=== PATIENT | female | born 1945 | race African-American/Black ===

== ENCOUNTER 2016-05-29 18:18 | Emergency (ER) | payer MEDICARE ==
[2016-05-29] MEDS ORDERED: HYDROcod/ACET 5/325 Prepack 6 PO ONE ×2 (19:34→19:40)
[2016-05-29] MEDS ORDERED: HYDROcod/ACETAM 5/325 MG TABLET PO STA (19:34)
[2016-05-29] MEDS ORDERED: HYDROcod/ACETAM 5/325 MG TABLET ONE (19:40)
== END 2016-05-29 20:34 | disposition home or self-care (01) ==
DX: S82.842A Displaced bimalleolar fracture of left lower leg, initial encounter for closed fracture (principal); X50.0XXA Overexertion from strenuous movement or load, initial encounter; I10 Essential (primary) hypertension; E78.00 Pure hypercholesterolemia, unspecified
CPT/HCPCS: 29515; 73610; 99283; A9270